=== PATIENT | male | born 1980 | race Caucasian/White ===

== ENCOUNTER 2024-08-02 10:43 | Outpatient (RCR) | payer OTHER, MEDICAID, SELFPAY | END 2024-08-16 09:29 | disposition home or self-care (01) | LOC: HO.PTWFD 10:43 | PROVIDERS: Visit Provider Physician Assistant | DX: S46.212D Strain of muscle, fascia and tendon of other parts of biceps, left arm, subsequent encounter (principal) | CPT/HCPCS: 97110; 97140; 97162; 97535 ==